=== PATIENT | female | born 1990 | race Caucasian/White ===

== ENCOUNTER 2023-01-29 14:42 | Emergency (ER) | payer OTHER, MEDICAID, SELFPAY ==
[2023-01-29 15:00] VITALS: BP 146/90; PULSE 72; RESP 18; TEMP 36.6; O2SAT 100; BMI 34.4
[2023-01-29 16:15] LABS: Bacteria Urine None Seen; Culture Indicated Urine Cult Not Indicated; RBC Urine 0-1/HPF (0-5/HPF); Squamous Epithelial Cell Urine 1-5 /HPF (0-5/HPF); WBC Urine 0-1/HPF (0-5/HPF)
--- NOTE | 2023-01-29 18:44 | ED_ITS ---
HPI - Altered Mental Status General Chief Complaint: Altered Mental Status Stated Complaint: Confusion, Disoriented Time Seen by Provider: 01/29/23 18:09 Source: patient Mode of arrival: Ambulatory History of Present Illness HPI narrative: 32-year-old female nonsmoker presents with her mother and a chief complaint concern about an episode of confusion she had earlier in the day. She states that she has had episodes of what she refers to as ?brain fog? off and on ever since she had COVID about 1 year ago and states it seems to be worse over the past few weeks, since she had COVID again. She states that she was attempting to seek medical care for a lymph node behind her left ear and when trying to describe her symptoms she became confused and had a difficult time thank you of what she wanted to say at the walk-in clinic and was then referred here for further evaluation. She denies any recent fever or chills. She is had no tr auma, head injury. She denies headache or blurred vision. She denies chest pain, shortness of breath or cough. She has had no nausea or vomiting. She feels much better by the time she gets here to the emergency department. She states that she is been trying some new vitamin combinations and thinks her stomach became a bit upset last night and did not sleep as well as normal. Otherwise she denies any new medications or dietary change. She states that the lymph node behind her left ear was actually larger a few weeks ago and seems to be moving in the right direction at this point. She denies any tenderness, redness or significant swelling overlying. She denies any trouble swallowing. Related Data Allergies Allergy/AdvReac Type Severity Reaction Status Date / Time No Known Drug Allergies Allergy Verified 01/29/23 15:04 Review of Systems Review of Systems Narrative: GENERAL: Denies chills, fatigue, malaise, fever, sweats. HEENT: Denies sinus pain, ear pain, sore throat, difficulty swallowing, dizziness. RESPIRATORY: Denies dyspnea, cough, wheezing, hemoptysis, sputum. CARDIOVASCULAR: Denies chest pain, palpitations, orthopnea, edema, GASTROINTESTINAL: Denies nausea, vomiting, abdominal pain, diarrhea, constipatio n, melena. : Denies dysuria, frequency, incontinence, hematuria, urinary retention. MUSCULOSKELETAL: denies weakness, joint pain, or bony pain SKIN: Denies rash, skin lesions, or other NEUROLOGIC: Denies weakness, headache, numbness, change in speech, confusion, seizures, incoordination. PSYCHIATRIC: No concerning psychosocial issues. 12 point review of systems is negative except for those stated above Patient History Substance Use Type: does not use Exam Initial Vital Signs Initial Vital Signs: Vital Signs Temperature 98 F 01/29/23 15:00 Pulse Rate 72 01/29/23 15:00 Respiratory Rate 18 01/29/23 15:00 Blood Pressure 146/90 H 01/29/23 15:00 Pulse Oximetry 100 01/29/23 15:00 Oxygen Delivery Method Room Air 01/29/23 15:00 Course Orders Ordered: ED Orders 01/29/23 20:44 CT head/brain wo con Stat 01/29/23 21:28 Acetaminophen Stat Complete Blood Count AUTO DIFF Stat Comprehensive Metabolic Panel Stat Lipase Stat Magnesium Stat Salicylate Stat TSH w/ Reflex to FT4 Stat Discontinued Medications Sodium Chloride (Normal Saline 0.9%) 1,000 mls @ 1,000 mls/hr IV BOLUS ONE Stop: 01/29/23 21:43 Last Infusion: 01/29/23 22:47 Dose: 0 mls/hr Documented By: Admin: 01/29/23 21:53 Dose: 1,000 mls/hr Documented By: MAYLIN Vital Signs Vital signs: Vital Signs - 8 hr 01/29/23 15:00 Temperature 98 F Pulse Rate 72 Respiratory Rate 18 Blood Pressure 146/90 H Pulse Oximetry 100 Oxygen Delivery Method Room Air MDM - Altered Mental Status Lab Data 01/29/23 21:28 01/29/23 21:28 Labs: Lab Results 01/29/23 01/29/23 01/29/23 Range/Units 15:05 21:28 21:28 WBC 7.5 (4.5-11.0) X10^3/uL RBC 4.73 (4.0-5.2) X10^6/uL Hgb 13.1 (12.0-16.0) g/dL Hct 38.4 (36-46) % MCV 81.2 (80-100) fL MCH 27.7 (26-34) PG MCHC 34.2 (30-36) % RDW 14.5 (11.6-14.8) % Plt Count 234 (150-400) X10^3/uL Neut % (Auto) 58.7 (50-75) % Lymph % (Auto) 32.9 (25-40) % Hancock % (Auto) 6.2 (3-14) % Eos % (Auto) 1.6 L (2-4) % Baso % (Auto) 0.6 (0-2) % Neut # (Auto) 4400 (7636-4983) /uL Lymph # (Auto) 2500 (1618-4517) /uL Hancock # (Auto) 500 (0-900) /uL Eos # (Auto) 100 (0-450) /uL Baso # (Auto) 0 (0-100) /uL Sodium 138 (137-145) mmol/L Potassium 3.6 (3.4-5.1) mmol/L Chloride 102 (98-107) mmol/L Carbon Dioxide 29 (22-32) mmol/L BUN 11 (7-17) mg/dL Creatinine 0.74 (0.52-1.04) mg/dL Estimated GFR > 60 (>60) mL/min BUN/Creatinine Ratio 14.9 (6-22) Glucose 82 (70-100) mg/dL Calcium 8.5 (8.4-10.2) mg/dL Magnesium 2.0 (1.6-2.3) mg/dL Total Bilirubin 0.6 (0.2-1.3) mg/dL AST 30 (14-36) IU/L ALT 28 (<35) IU/L Alkaline Phosphatase 54 (38-126) U/L Total Protein 7.3 (6.3-8.2) g/dL Albumin 4.1 (3.5-5.0) g/dL Globulin 3.2 (1.7-4.1) g/dL Albumin/Globulin Ratio 1.3 (1.0-2.8) Lipase 90 (23-300) U/L TSH (0.47-4.68) uIU/mL Urine RBC 0-1/hpf (0-5/HPF) Urine WBC 0-1/hpf (0-5/HPF) Ur Squamous Epith Cells 1-5 /hpf (0-5/HPF) Urine Bacteria None seen (None) Ur Culture Indicated? Cult not indicated Salicylates < 1.0 (<20) mg/dL Acetaminophen < 10 (10-30) ug/mL 01/29/23 Range/Units 21:28 WBC (4.5-11.0) X10^3/uL RBC (4.0-5.2) X10^6/uL Hgb (12.0-16.0) g/dL Hct (36-46) % MCV (80-100) fL MCH (26-34) PG MCHC (30-36) % RDW (11.6-14.8) % Plt Count (150-400) X10^3/uL Neut % (Auto) (50-75) % Lymph % (Auto) (25-40) % Hancock % (Auto) (3-14) % Eos % (Auto) (2-4) % Baso % (Auto) (0-2) % Neut # (Auto) (9413-7075) /uL Lymph # (Auto) (8154-5570) /uL Hancock # (Auto) (0-900) /uL Eos # (Auto) (0-450) /uL Baso # (Auto) (0-100) /uL Sodium (137-145) mmol/L Potassium (3.4-5.1) mmol/L Chloride (98-107) mmol/L Carbon Dioxide (22-32) mmol/L BUN (7-17) mg/dL Creatinine (0.52-1.04) mg/dL Estimated GFR (>60) mL/min BUN/Creatinine Ratio (6-22) Glucose (70-100) mg/dL Calcium (8.4-10.2) mg/dL Magnesium (1.6-2.3) mg/dL Total Bilirubin (0.2-1.3) mg/dL AST (14-36) IU/L ALT (<35) IU/L Alkaline Phosphatase (38-126) U/L Total Protein (6.3-8.2) g/dL Albumin (3.5-5.0) g/dL Globulin (1.7-4.1) g/dL Albumin/Globulin Ratio (1.0-2.8) Lipase (23-300) U/L TSH 2.63 (0.47-4.68) uIU/mL Urine RBC (0-5/HPF) Urine WBC (0-5/HPF) Ur Squamous Epith Cells (0-5/HPF) Urine Bacteria (None) Ur Culture Indicated? Salicylates (<20) mg/dL Acetaminophen (10-30) ug/mL Point of Care Testing Test Results Negative Urine Dip Bedside Urine Glucose Negative Bedside Urine Bilirubin - Negative Bedside Urine Ketone - Negative Urine Specific [place] 1.015 Bedside Urine Occult Blood +/- Bedside Urine pH 5.5 Bedside Urine Protein - Negative Bedside Urine Urobilinogen - Negative Bedside Urine Nitrite - Negative Bedside Urine Leukocytes - Negative Esterase MDM Narrative Medical decision making narrative: [32] year old patient presents with concern about a brief episode of confusion and a postauricular lymph node Multiple etiologies for patient's symptoms considered including, but not limited to: [Long COVID, electrolyte abnormality versus other Prior Charts reviewed in our EMR Primary Historian: patient Labs reviewed and interpreted by myself: Blood counts, electrolytes, renal function and urine without significant findings Imaging reviewed: Head CT without acute process Patient with reassuring history and physical exam, she does a small postauricular lymph node but it is not tender, it is smaller than had been, there is no fluctuance induration or redness. It seems most consistent reactive lymph node adenopathy rather than any infected note, abscess or other. Her exam, labs and imaging are otherwise reassuring and there is no evidence of stro ke, bleeding, electrolyte abnormality, infection or other. Patient's symptoms improved over duration of stay with above-stated therapies. Findings and discharge diagnosis discussed with patient/family followed by verbalization of understanding Return precautions discussed with patient/family whom verbalize understanding of diagnosis and plan Discharge Plan Departure Patient Disposition: Home Clinical Impression: Reactive cervical lymphadenopathy, COVID-19 sandy zepeda Instructions: DI for Lymphadenopathy, Post-COVID Syndrome Activity Restrictions/Additional Instructions: *You have been diagnosed with [reactive lymphadenopathy and symptoms likely secondary to long COVID. As we discussed your history and physical exam as well as labs and imaging are otherwise reassuring and there is no evidence of the need for any specific or immediate intervention otherwise] *What to do: *Please continue to take your regular medications as directed. *Please follow up with your primary care provider in 2-3 days, call for an appointment. Let them know you were seen in the Emergency Department and that we ask that you be seen in follow up. We will electronically transmit a record of today's note if your PCP is in our system *If you do not have a primary care provider please contact the [facility] Resource line at [phone]. They will ask some questions about your medical history and help get you set up with a doctor in the community. *Return to Emergency Department if you should have any new, worsening or concerning symptoms, such as [fever greater than 101 F, shaking chills, worsening pain, persistent vomiting or other bothersome symptoms] Stand Alone Forms: Patient Portal/API
--- NOTE | 2023-01-29 20:44 | DI.CT.S_ITS ---
PROCEDURE: CT HEAD/BRAIN WO CON INDICATIONS: confusion, altered TECHNIQUE: Noncontrast 4.5 mm thick angled axial sections acquired from the foramen magnum to the vertex, with coronal and sagittal reformats. For radiation dose reduction, the following was used: automated exposure control, adjustment of mA and/or kV according to patient size. COMPARISON: None. FINDINGS: Image quality: Excellent. CSF spaces: Basal cisterns are patent. No extra-axial fluid collections. Ventricles are normal in size and shape. Brain: No intracranial hemorrhage, mass, or mass effect. Gonzalez-white matter interface appears preserved. Skull and face: Calvarium and visualized facial bones are intact, without suspicious lesions. Sinuses: Visualized sinuses and mastoids are clear. IMPRESSION: 1. No acute intracranial abnormality. Dictated by: Miky Brady M.D. on 01/29/2023 at 21:09 Approved by: Miky Brady M.D. on 01/29/2023 at 21:10
--- NOTE | 2023-01-29 21:27 | PC.NURSE ---
Patient reports that she has been having intermittent changes in cognition. Patient currently is alert, orientated and able to complete all portions of the [facility] without hesitation or delay.
[2023-01-29 21:31] LABS: Add Manual Diff / Slide Review NO; Basophils Absolute Auto 0 /uL (0-100); Basophils Percent Auto 0.6 % (0-2); Eosinophils Absolute Auto 100 /uL (0-450); Eosinophils Percent Auto 1.6 % (2-4); Hematocrit 38.4 % (36-46); Hemoglobin 13.1 g/dL (12.0-16.0); Lymphocytes Absolute Auto 2500 /uL (1100-4500); Lymphocytes Percent Auto 32.9 % (25-40); Mean Corpuscular HGB Conc 34.2 % (30-36); Mean Corpuscular Hemoglobin 27.7 PG (26-34); Mean Corpuscular Volume 81.2 fL (80-100); Monocytes Absolute Auto 500 /uL (0-900); Monocytes Percent Auto 6.2 % (3-14); Neutrophils Absolute Auto 4400 /uL (1500-7000); Neutrophils Percent Auto 58.7 % (50-75); Platelet Count 234 X10^3/uL (150-400); Red Blood Cell Count 4.73 X10^6/uL (4.0-5.2); Red Cell Distribution Width 14.5 % (11.6-14.8); White Blood Cell Count 7.5 X10^3/uL (4.5-11.0)
[2023-01-29 21:43] LABS: Acetaminophen < 10 ug/mL (10-30); Alanine Aminotransferase 28 IU/L (<35); Albumin 4.1 g/dL (3.5-5.0); Albumin Globulin Ratio 1.3 (1.0-2.8); Alkaline Phosphatase 54 U/L (38-126); Aspartate Aminotransferase 30 IU/L (14-36); BUN Creatinine Ratio 14.9 (6-22); Bilirubin Total 0.6 mg/dL (0.2-1.3); Blood Urea Nitrogen 11 mg/dL (7-17); Calcium 8.5 mg/dL (8.4-10.2); Carbon Dioxide 29 mmol/L (22-32); Chloride 102 mmol/L (98-107); Estimated Glomerular Filt Rate > 60 mL/min (>60); Globulin 3.2 g/dL (1.7-4.1); Glucose 82 mg/dL (70-100); HEMOLYSIS < 15 (0-50); Lipase 90 U/L (23-300); Potassium 3.6 mmol/L (3.4-5.1); Salicylate < 1.0 mg/dL (<20); Sodium 138 mmol/L (137-145); Total Protein 7.3 g/dL (6.3-8.2)
[2023-01-29] MEDS: SODIUM CHLORIDE 0.9% 1,000 ML 1000 ML IV (21:53)
[2023-01-29 22:28] LABS: TSH w/ Reflex to FT4 2.63 uIU/mL (0.47-4.68)
== END 2023-01-29 22:49 | disposition home or self-care (01) ==
PROVIDERS: Emergency Medicine; Emergency Provider Emergency Medicine
DX: R59.0 Localized enlarged lymph nodes (principal); U09.9 Post COVID-19 condition, unspecified; R41.0 Disorientation, unspecified
CPT/HCPCS: 36415; 70450; 80053; 80329; 81003; 81015; 81025; 83690; 83735; 84443; 85025; 99284; G0480